=== PATIENT | female | born 2000 | race Caucasian/White ===

== ENCOUNTER 2021-02-16 05:50 | Emergency (ER) | payer OTHER ==
[~2021-02-16] VITALS: Ht 144.8 cm; Wt 72.6 kg
[2021-02-16] MEDS ORDERED: ALBU90OI INH (06:21)
[2021-02-16] MEDS ORDERED: ALBU2.5V5 (06:21)
[2021-02-16] MEDS ORDERED: MONTELUKAST SODI1 GM MC (06:22)
[2021-02-16] MEDS ORDERED: FLUT1DIS2 INH (06:43)
== END 2021-02-16 06:59 | disposition home or self-care (01) ==
LOC: ER 05:50
DX: J45.901 Unspecified asthma with (acute) exacerbation (principal); Z79.899 Other long term (current) drug therapy
CPT/HCPCS: 99284; J1100